=== PATIENT | female | born 1985 | race Caucasian/White ===

== ENCOUNTER → 2021-01-01 08:37 | Outpatient (CLI) | payer OTHER, SELFPAY ==
[2021-01-01 09:43] LABS: COVID19 -Nasal RAPID POSITIVE (Negative)
== END ==
PROVIDERS: PCP Physician Assistant; Visit Provider Physician Assistant
DX: U07.1 COVID-19 (principal)
CPT/HCPCS: 87635

== ENCOUNTER → 2021-07-13 19:07 | Outpatient (ROUT) | payer OTHER, SELFPAY ==
[2021-07-13 20:37] LABS: Urine N gonorrhoeae NOT DETECTED
[2021-07-13 20:43] LABS: Urine Chlamydia NOT DETECTED
== END ==
PROVIDERS: PCP Student in an Organized Health Care Education/Training Program; Visit Provider Obstetrics & Gynecology
DX: Z34.81 Encounter for supervision of other normal pregnancy, first trimester (principal); Z3A.09 9 weeks gestation of pregnancy
CPT/HCPCS: 87491; 87591

== ENCOUNTER → 2021-07-23 09:16 | Outpatient (CLI) | payer OTHER, SELFPAY ==
[2021-07-23 10:14] LABS: Add Manual Diff / Slide Review NO; Basophils Absolute Auto 0 /uL (0-100); Basophils Percent Auto 0.3 % (0-2); Eosinophils Absolute Auto 0 /uL (0-450); Eosinophils Percent Auto 0.2 % (2-4); Hematocrit 37.4 % (36-46); Hemoglobin 12.8 g/dL (12.0-16.0); Lymphocytes Absolute Auto 1400 /uL (1100-4500); Lymphocytes Percent Auto 15.2 % (25-40); Mean Corpuscular HGB Conc 34.2 % (30-36); Mean Corpuscular Hemoglobin 29.8 PG (26-34); Mean Corpuscular Volume 87.1 fL (80-100); Monocytes Absolute Auto 700 /uL (0-900); Monocytes Percent Auto 7.2 % (3-14); Neutrophils Absolute Auto 7300 /uL (1500-7000); Neutrophils Percent Auto 77.1 % (50-75); Platelet Count 367 X10^3/uL (150-400); Red Blood Cell Count 4.29 X10^6/uL (4.0-5.2); Red Cell Distribution Width 14.1 % (11.6-14.8); White Blood Cell Count 9.5 X10^3/uL (4.5-11.0)
[2021-07-23 10:39] LABS: Appearance Urine UA CLEAR; Bilirubin Urine UA NEGATIVE (NEGATIVE); Color Urine UA YELLOW; Glucose Urine UA NEGATIVE (Negative); Ketones Urine UA NEGATIVE (NEGATIVE); Leukocyte Esterase Urine UA NEGATIVE (NEGATIVE); Nitrite Urine UA NEGATIVE (Negative); Occult Blood Urine UA NEGATIVE (Negative); Protein Urine UA NEGATIVE (Negative); Urobilinogen Urine UA 0.2 E.U./dL (0.2)
[2021-07-23 10:43] LABS: pH Urine UA 7.5 (4.5-8.0)
[2021-07-23 10:58] LABS: Hepatitis B Surface Antigen NEGATIVE s/c (NEGATIVE); Rubella Antibody IgG 19.1 IU/mL (>15)
[2021-07-23 11:14] LABS: HIV 1 & 2 Ab/Ag 4th Gen Combo NEGATIVE (NEGATIVE); Hep C Virus Ab w/Reflex Quant NEGATIVE s/c (NEGATIVE)
[2021-07-24 04:36] LABS: RPR Screen Non Reactive (Non Reactive)
[2021-07-24 08:32] LABS: Varicella IgG Antibody 722 index (Immune >165)
== END ==
PROVIDERS: PCP Student in an Organized Health Care Education/Training Program; Referring Provider Obstetrics & Gynecology; Visit Provider Obstetrics & Gynecology
DX: Z36.0 Encounter for antenatal screening for chromosomal anomalies (principal); Z34.80 Encounter for supervision of other normal pregnancy, unspecified trimester
CPT/HCPCS: 36415; 80055; 81003; 86787; 86803; 86850; 86900; 86901; 87086; 87389

== ENCOUNTER → 2021-09-09 14:08 | Outpatient (CLI) | payer OTHER, SELFPAY ==
[2021-09-11 21:10] LABS: AFP Value 72.1 ng/mL (.); Gest Age on Col Date 18.3 weeks (.); Insulin Dep Diabetes No (.); OSBR Risk 1IN 3220 (.); Results Report (.); Test Results *Screen Negative* (.)
== END ==
PROVIDERS: PCP Student in an Organized Health Care Education/Training Program; Referring Provider Obstetrics & Gynecology; Visit Provider Obstetrics & Gynecology
DX: Z34.82 Encounter for supervision of other normal pregnancy, second trimester (principal); Z3A.17 17 weeks gestation of pregnancy
CPT/HCPCS: 36415; 82105

== ENCOUNTER → 2021-09-27 09:10 | Outpatient (CLI) | payer OTHER, SELFPAY ==
--- NOTE | 2021-09-27 09:11 | DI.US.S_ITS ---
PROCEDURE: US OB >= 14 WEEKS FETUS INDICATIONS: Anatomy scan OUTSIDE/PRIOR DATING DATA: Last menstrual period (LMP): 05/08/2021. LMP-based estimated date of delivery (PIETRO): 02/12/2022. First dating scan (date and location): 07/13/2021. Estimated date of delivery (PIETRO) from first dating scan: 02/09/2022. The calculations are made using the ultrasound PIETRO of 02/09/2022. TECHNIQUE: Real-time scanning was performed of the fetus, with image documentation and biometric measurements. Endovaginal scanning: Not performed COMPARISON: [facility], US, US OB <= 14 WEEKS FETUS, 07/13/2021, 14:40. [facility], , US OB <= 14 WEEKS FETUS, 08/12/2021, 13:49. FINDINGS: General: A single living intrauterine gestation is present. Presentation: Breech. Placenta: Placental position is anterior , without previa. Amniotic fluid index: 11.3 cm, normal range is 5-24 cm. heart rate: 144 beats per minute. Maternal cervical canal: 4.6 cm long. Normal lower limit is 2.5 cm. biometrics: Biparietal diameter: 4.8 cm. 20 weeks 3 days. Head circumference: 18.4 cm. 20 weeks 5 days. Abdominal circumference: 16.0 cm. 21 weeks 1 day. Femur length: 3.5 cm. 21 weeks 0 days. Clinically estimated gestational age: 20 weeks 5 days Composite gestational age from present scan: 20 weeks 6 days Estimated weight and percentile: 392 g. 61st percentile. Anatomic survey: Neuro: Ventricles are non-dilated at less than 10 mm. Cisterna magna is normal at 3-11 mm. Cerebellum is normal in size and morphology. Nuchal skin fold: Normal at less than 6 mm between 14-21 weeks gestational age. Face: Nose and lips, facial profile are normal. Spine: No evidence for spina bifida. Heart: 4-chambered heart is present, with normal ventricular outflow tracts. Diaphragm: Diaphragm is intact. Stomach: Left-sided stomach is present. Kidneys: No hydronephrosis. Normal is less than 5 mm in 2nd trimester, less than 7 mm in 3rd trimester. Cord: 3-vessel cord has orthotopic insertion. At the placental insertion there is a 3.2 x 3.7 x 1.3 cm hypoechoic area with a cystic appearance likely a benign placental goldsmith. Bladder: Normal in size. Extremities: All 4 extremities identified. IMPRESSION: 1. All anatomy is visualized and is normal. 2. Hypoechoic area at the placental cord insertion likely a benign placental goldsmith. Recommend routine follow-up. We strive to produce accurate, complete, and clear reports of imaging services. To assist us in improving patient care, this report was composed using standard report templates and voice recognition software. Therefore, it may contain abnormal punctuation, insertions and/or omissions. Occasional wrong-word or sound-alike substitutions may occur. Though we review the report and make efforts to correct it, we do recommend that the report be read carefully in proper context to recognize any text inaccuracies. Dictated by: Clifford Gonzalez M.D. on 09/27/2021 at 10:28 Approved by: Clifford Gonzalez M.D. on 09/27/2021 at 10:43
== END ==
PROVIDERS: PCP Student in an Organized Health Care Education/Training Program; Referring Provider Obstetrics & Gynecology; Visit Provider Obstetrics & Gynecology
DX: Z34.92 Encounter for supervision of normal pregnancy, unspecified, second trimester (principal); Z3A.20 20 weeks gestation of pregnancy
CPT/HCPCS: 76811

== ENCOUNTER → 2021-11-02 14:10 | Outpatient (CLI) | payer OTHER, SELFPAY ==
[2021-11-02 16:00] LABS: Hematocrit 37.1 % (36-46); Hemoglobin 12.6 g/dL (12.0-16.0)
[2021-11-02 16:44] LABS: GTT (PREG) 1 Hour PP 50gm Dose 147 mg/dL (76-139)
== END ==
PROVIDERS: PCP Student in an Organized Health Care Education/Training Program; Referring Provider Obstetrics & Gynecology; Visit Provider Obstetrics & Gynecology
DX: Z34.82 Encounter for supervision of other normal pregnancy, second trimester (principal); Z3A.26 26 weeks gestation of pregnancy
CPT/HCPCS: 36415; 82950; 85014; 85018

== ENCOUNTER → 2021-11-10 07:04 | Outpatient (CLI) | payer OTHER, SELFPAY ==
[2021-11-10 08:08] LABS: Glucose Fasting Gestational 80 mg/dL (76-95)
[2021-11-10 09:34] LABS: Glucose 1 Hour Gest 190 mg/dL (76-180)
[2021-11-10 09:50] LABS: Glucose 2 Hour Gest 131 mg/dL (76-155)
[2021-11-10 10:30] LABS: Glucose Tol Interp,Gestational INTERPRETATION
[2021-11-10 11:47] LABS: Glucose 3 Hour Gest 99 mg/dL (76-140)
== END ==
PROVIDERS: PCP Student in an Organized Health Care Education/Training Program; Referring Provider Obstetrics & Gynecology; Visit Provider Obstetrics & Gynecology
DX: O99.810 Abnormal glucose complicating pregnancy (principal)
CPT/HCPCS: 36415; 82951; 82952

== ENCOUNTER → 2022-01-21 08:44 | Outpatient (CLI) | payer OTHER, SELFPAY ==
[2022-01-22 13:11] LABS: Strep Grp B PCR NEG for Grp B Strep
== END ==
PROVIDERS: PCP Student in an Organized Health Care Education/Training Program; Visit Provider Obstetrics & Gynecology
DX: Z34.83 Encounter for supervision of other normal pregnancy, third trimester (principal); Z3A.36 36 weeks gestation of pregnancy
CPT/HCPCS: 87653

== ENCOUNTER 2022-01-25 12:47 | Outpatient (CLI) | payer OTHER, SELFPAY | END 2022-01-25 13:44 | disposition home or self-care (01) | LOC: LABOR 13:31 → OB 01-28 08:03 | PROVIDERS: PCP Student in an Organized Health Care Education/Training Program; Referring Provider Obstetrics & Gynecology; Visit Provider Obstetrics & Gynecology | DX: O47.1 False labor at or after 37 completed weeks of gestation (principal); Z3A.37 37 weeks gestation of pregnancy | CPT/HCPCS: 59025; 84112; G0378; G0379 ==

== ENCOUNTER 2022-02-10 16:00 | Observation (INO) | payer OTHER, SELFPAY ==
[2022-02-10] MEDS: MORPHINE 10 MG/ML INJ IM (17:53)
[2022-02-10] MEDS: hydrOXYzine pamoate 25 MG CAPSULE 50 MG PO (17:57)
== END 2022-02-10 18:14 | disposition home or self-care (01) ==
LOC: LABOR 16:03
PROVIDERS: Admitting Provider Obstetrics & Gynecology; PCP Student in an Organized Health Care Education/Training Program; Referring Provider Obstetrics & Gynecology; Visit Provider Obstetrics & Gynecology
DX: O47.1 False labor at or after 37 completed weeks of gestation (principal); Z3A.39 39 weeks gestation of pregnancy
CPT/HCPCS: 59025; 59050; 96372; G0378; G0379; J2270

== ENCOUNTER 2022-02-11 01:08 | Inpatient (IN) | payer OTHER, SELFPAY ==
[2022-02-11 01:51] LABS: Add Manual Diff / Slide Review NO; Basophils Absolute Auto 0 /uL (0-100); Basophils Percent Auto 0.2 % (0-2); Eosinophils Absolute Auto 100 /uL (0-450); Eosinophils Percent Auto 0.3 % (2-4); Hematocrit 42.2 % (36-46); Hemoglobin 13.8 g/dL (12.0-16.0); Lymphocytes Absolute Auto 1800 /uL (1100-4500); Lymphocytes Percent Auto 8.6 % (25-40); Mean Corpuscular HGB Conc 32.7 % (30-36); Mean Corpuscular Hemoglobin 29.1 PG (26-34); Mean Corpuscular Volume 89.2 fL (80-100); Monocytes Absolute Auto 1300 /uL (0-900); Monocytes Percent Auto 6.5 % (3-14); Neutrophils Absolute Auto 17400 /uL (1500-7000); Neutrophils Percent Auto 84.4 % (50-75); Platelet Count 373 X10^3/uL (150-400); Red Blood Cell Count 4.73 X10^6/uL (4.0-5.2); Red Cell Distribution Width 13.6 % (11.6-14.8); White Blood Cell Count 20.6 X10^3/uL (4.5-11.0)
[2022-02-11 02:03] LABS: COVID19 -Nasal RAPID Negative (Negative)
[2022-02-11] MEDS: fentaNYL 100 MCG/2 ML INJ (02:12)
[2022-02-11 02:20] VITALS: BP 127/71
--- NOTE | 2022-02-11 13:02 | P.HPOB_ITS ---
OB HPI Date/Time Date of admission: 02/11/22 Date Patient Seen: 02/11/22 Time Patient Seen: 07:45 History of Present Condition Chief complaint: LABOR PIETRO Calculator Estimated Delivery Date Method Current WG Current Estimate 02/12/22 LMP (Certain) 39w 6d Estimated Gestational Age (weeks): 39+6 : 3 Para: 0 care: good care, initiated at week # (9), number of visits (12) and pounds weight gain (35) Dating criteria OB: LMP confirmed by 1st trimester US Ultrasounds: normal 1st trimester US Obstetrical complications: none Medical complications OB: none Narrative: Elevated 1 hr GTT, nl 3 hr GTT Preadmission Labs Last OB Lab Results: Blood Type A Positive 02/11/22 01:00 Antibody Screen Negative 02/11/22 01:00 Hematocrit 42.2 % (36-46) 02/11/22 01:00 Hemoglobin 13.8 g/dL (12.0-16.0) 02/11/22 01:00 Hepatitis B Surface Antigen Negative s/c (NEGATIVE) 07/23/21 09 :52 Hepatitis C Antibody Negative s/c (NEGATIVE) 07/23/21 09:52 Rubella Antibody 19.1 IU/mL (>15) 07/23/21 09:52 Varicella-Zoster IgG Antibody 722 index (Immune >165) 07/23/21 09:52 Glucose 1 Hour 147 mg/dL (76-139) H 11/02/21 15:19 Group B Streptococcus (PCR) Neg for grp b strep 01/21/22 08:44 Glucose Tolerance Testing: Fasting (80), 1 hr (190), 2 hr (131) and 3 hr (99) -: Chlamydia screen: negative, Gonorrhea screen: negative and Urine: negative Genetic Screens: Cell-free DNA: Normal (normal male) and Alpha-fetoprotein: Normal External Labs -: Urine: negative Prior (ies) Past Pregnancies Del. Date GA/Weeks Labor Lgth Wt Sex Route Outcome Anesthesia Place Delv Breastfeed Preg Comp Name 12/09/15 6 spontaneous 04/03/21 5 spontaneous Evaluation Evaluation Baseline heart rate: 135 Variability: Moderate (11-25) monitor accelerations: Present Monitor Decelerations: Absent Contraction Frequency (minutes): 3 Uterine Contraction Intensity: Strong/Firm Status: Category l Dilation (cm): 8 Effacement (%): 100 station: -1 Position of cervix: anterior [facility] Medical History (Updated 07/13/21 @ 14:53 by Uyen Godfrey MD) Allergies (~2015) Anxiety (~2021) Lymphoproliferative disease (~2015) Surgical History (Updated 07/05/21 @ 10:25 by Aurelia Campo RN) No history of previous surgery Family History (Updated 07/05/21 @ 21:42 by Zoila Banda) Grandmother Cancer Grandmother Breast cancer Social History (System 07/02/21 @ 09:39 by Zaira Carroll) marital status: number of children: 0 household members: spouse lives independently: Yes housing: house pets and animals: Yes (Dog and cat - aware of toxoplasmosis) occupational status: employed current occupational exposures/hazards: No special betsy needs: No seatbelt use: always water heater temp set < 120 deg: Yes working smoke detector in home: Yes fire extinguisher in home: Yes carbon monox detector in home: Yes firearms in home: No do you feel safe at home: Yes Smoking Status: Never smoker second hand exposure: No alcohol intake: former substance use type: does not use during the past year weight has: remained stable well-balanced diet: daily or most days daily servings fruits/ve-4 caffeine: Yes (200mg limit) Type(s) of exercise: walking and regular exercise frequency: daily Meds Home Medications and Allergies Home Medications Medication Instructions Recorded Confirmed Type loratadine 10 mg tablet (Allergy 10 mg PO DAILY 01/01/21 02/10/22 History Relief (loratadine)) prenat.vits,jane,fee-gano-slxvq 1 tab PO DAILY 07/05/21 02/10/22 History citalopram 10 mg tablet (Celexa) 10 mg PO DAILY #30 tabs 07/13/21 02/10/22 Rx hydroxyzine HCl 25 mg tablet 25 mg PO TID PRN anxiety #30 tabs 10/25/21 02/10/22 Rx Allergies Allergy/AdvReac Type Severity Reaction Status Date / Time No Known Drug Allergies Allergy Verified 02/10/22 14:58 OB Exam Narrative Exam Narrative: Generally: Patient in moderate distress due to contractions Fundal height: 40 cm Estimated weight: 7-1/2 lb Extremities: Trace edema Objective Labs Result Diagrams: 02/11/22 01:00 Labs: Laboratory Results - last 24 hr 02/11/22 02/11/22 02/11/22 01:00 01:00 01:25 WBC 20.6 H RBC 4.73 Hgb 13.8 Hct 42.2 MCV 89.2 MCH 29.1 MCHC 32.7 RDW 13.6 Plt Count 373 Neut % (Auto) 84.4 H Lymph % (Auto) 8.6 L [place] % (Auto) 6.5 Eos % (Auto) 0.3 L Baso % (Auto) 0.2 Neut # (Auto) 67832 H Lymph # (Auto) 1800 [place] # (Auto) 1300 H Eos # (Auto) 100 Baso # (Auto) 0 SARS-CoV-2 (PCR) Negative Blood Type A Positive Antibody Screen Negative Assessment and Plan Assessment and Plan Assessment and Plan narrative: Assessment: 36-year-old 3 para 0 at 39-,6/7 weeks gestation who presented in active labor Presumed rupture of membranes at 3:00 a.m. Group B strep negative 1 hour glucose elevated, 3 hour glucose normal Plan: Expected management to spontaneous vaginal delivery Epidural as necessary Time Spent with Patient Total time spent with greater than 50% in coordination of care (as documented) at patient's floor/unit and/or counseling patient:: 15-24 minutes
--- NOTE | 2022-02-11 13:08 | PM.OBPNLAB ---
Date/Time Date Patient Seen: 02/11/22 Time Patient Seen: 13:08 Pain Control Pain control: epidural Pelvic Exam Dilation (cm): 10 Effacement (%): 100 station: -1 Amniotic membrane status: Ruptured Contractions Contractions on admission: regular Monitor mode: External Contraction frequency (min): 5 Contraction duration (min): 1 Contraction intensity: Strong/Firm Status status: Category l Heart Rate Baseline: 125 Monitor Accelerations: Present Monitor Decelerations: Early and Variable Monitor Variability: Moderate Assessment and Plan Assessment: active labor Comments: Begin pushing Expectant management to
[2022-02-11] MEDS: OXYTOCIN PREMIX 30 UNIT/500 ML PLAST..BAG IV (13:20)
--- NOTE | 2022-02-11 16:17 | PM.OBPNLAB ---
Date/Time Date Patient Seen: 02/11/22 Time Patient Seen: 15:55 Pain Control Pain control: tolerating well and epidural Pelvic Exam Dilation (cm): 10 Effacement (%): 100 station: +2 Amniotic membrane status: Ruptured Contractions Monitor mode: External Contraction frequency (min): 5 Contraction pattern: Regular Contraction phase: Resting Contraction intensity: Moderate Status status: Category l Heart Rate Baseline: 135 Monitor Accelerations: Present Monitor Decelerations: Late (Following pushes; Pitocin off and decels have stopped; Moderate variability) and Periodic Monitor Variability: Moderate Assessment and Plan Assessment: active labor Plan: continuous present management Comments: Will resume pushing off pitocin with resumption of pitocin if decels resolve. Expedited delivery w/ vacuum extraction if warranted.
--- NOTE | 2022-02-11 17:42 | P.PCNOB_ITS ---
Labor & Delivery Delivery date: 02/11/22 Intrapartal Events: Hypotonic Dysfunction Cervical ripening method: none Delivery monitor: external FHT and external uterine Route of delivery: vacuum extraction Indication for instrumentation: nonreassuring FHR tracing Episiotomy description: None L&D Laceration Description: Periurethral - 1st Degree (Bilateral), Perineal - 1st Degree and Labial (Right) Delivery repair: chromic Estimated blood loss (mL): 150 Anesthesia Type: Epidural Complications: None Narrative: Following a 2nd stage lasting greater than 2.0 hours, the patient was noted to have recurrent late decelerations associated with her contractions at which point Pitocin was stopped and pushing discontinued. Her decelerations resolved but with resumption pushing, she again began to have deep variables with a late component and after discussion with the patient and her , the decision was made to proceed with vacuum extraction from +2-3 3 station. The was in left occiput anterior position approximately 5? from direct OA at +2-3 station. Kiwi Omni cup was applied in the usual manner and the vertex easily brought down to perineum with 4 pulls and no pop offs. Pressure was maintained below 550 mm mercury at all times and suction was released between pushes. Three additional pulls with a standard vacuum extractor were necessary to gently bring the vertex over the intact perineum. No shoulder dystocia was noted and there was no cord entanglement. Following delivery, skin to skin contact was initiated immediately and delayed cord clamping performed. Once the umbilical cord was doubly clamped and cut, a cord blood sample was obtained for routine testing. Placenta was then delivered spontaneously gentle cord traction, and was found to be intact with a three-vessel cord and central insertion. IV Pitocin was initiated and post delivery bleeding was minimal. Inspection of the perineum showed that a labial laceration was present on the right with first-degree periurethral lacerations noted bilaterally. In addition there was a superficial perineal tear as well. All lacerations were then closed primarily with either 3-0 chromic or 4-0 chromic suture. Hemostasis was e xcellent at the completion of the repairs and the patient tolerated the delivery process well. At the conclusion of the delivery process both mother and were doing well and no complications were experienced. [employer] Baby 1: Infant gender: Male Presentation: vertex Position: Left Occiput Anterior Placenta delivery description: Spontaneous Cord Vessel Description: 3 Vessels score (1 min): 9 score (5 min): 9 weight: 7 lb 6.344 oz Plan for aftercare: Routine care
[2022-02-11] MEDS: IBUPROFEN 600 MG TABLET PO (18:34)
[2022-02-11] MEDS: ACETAMINOPHEN 325 MG TABLET 650 MG PO (18:34)
[2022-02-11] MEDS: DERMOPLAST SPRAY 20% 60 ML 1 SPRAY TOP (18:35)
[2022-02-11] MEDS: LANOLIN OINT 7 GM 1 APPLIC TOP (18:36)
[2022-02-11] MEDS: miSOPROStoL 200 MCG TABLET 800 MCG PR (19:49)
[2022-02-11] MEDS: METHYLERGONOVINE 0.2 MG/ML VIAL IM (19:50)
[2022-02-11] MEDS: OXYTOCIN PREMIX 30 UNIT/500 ML PLAST..BAG 200 UNIT IV (19:50)
[2022-02-11] MEDS: CARBOPROST 250 MCG/ML AMPUL IM (22:19)
[2022-02-11] MEDS: TRANEXAMIC ACID 1,000 MG in SODIUM CHLORIDE 0.9% 100 ML 200 MG IV (22:33)
[2022-02-12] MEDS: hydrOXYzine pamoate 25 MG CAPSULE PO (00:06)
[2022-02-12] MEDS: ACETAMINOPHEN 325 MG TABLET 650 MG PO ×4 (00:06→18:42)
[2022-02-12] MEDS: IBUPROFEN 600 MG TABLET PO ×4 (00:06→18:42)
[2022-02-12 06:32] LABS: Add Manual Diff / Slide Review NO; Basophils Absolute Auto 0 /uL (0-100); Basophils Percent Auto 0.1 % (0-2); Eosinophils Absolute Auto 0 /uL (0-450); Eosinophils Percent Auto 0.2 % (2-4); Hematocrit 30.9 % (36-46); Hemoglobin 10.6 g/dL (12.0-16.0); Lymphocytes Absolute Auto 1700 /uL (1100-4500); Lymphocytes Percent Auto 8.5 % (25-40); Mean Corpuscular HGB Conc 34.2 % (30-36); Mean Corpuscular Volume 87.7 fL (80-100); Monocytes Absolute Auto 1800 /uL (0-900); Monocytes Percent Auto 9.1 % (3-14); Neutrophils Absolute Auto 15900 /uL (1500-7000); Neutrophils Percent Auto 82.1 % (50-75); Platelet Count 302 X10^3/uL (150-400); Red Blood Cell Count 3.53 X10^6/uL (4.0-5.2); Red Cell Distribution Width 13.4 % (11.6-14.8); White Blood Cell Count 19.4 X10^3/uL (4.5-11.0)
[2022-02-12] MEDS: DOCUSATE 100 MG CAPSULE PO (09:16)
[2022-02-12] MEDS: CITALOPRAM 10 MG TABLET PO (09:16)
--- NOTE | 2022-02-12 15:55 | P.DS_ITS ---
Discharge Providers Provider Date of admission: 02/11/22 01:08 Discharge Date: 02/12/22 Primary care physician: Isatu Scales PA-C Consults: 02/12/22 17:39 Consult to Revenue Enforcement Collection Agent Routine Comment: Discharge provider: Uyen Godfrey MD Summary Hospital Course Date Patient Seen: 02/12/22 Time Patient Seen: 15:56 Diagnoses: 39-,6/7 weeks gestation Pitocin augmentation of labor Prolonged second stage of labor Vacuum assisted vaginal delivery Obstetrical laceration and repair hemorrhage Hospital Course: Patient is a 36-year-old 3 para 1 who presented on February 11, 2022 in active labor. She had a spontaneous rupture of membranes with clear amniotic fluid. She received an epidural for pain management. She had a prolonged second stage of labor, with some late/variable decelerations, and had a vacuum assisted vaginal delivery. She had an uncomplicated repair. She had a hemorrhage which required IV Pitocin, Methergine, Cytotec, Hemabate, and TXA. A Chaudhry catheter was placed for a distended bladder. The Chaudhry catheter was removed on day #1. She was able to void on her own. Her bleeding was minimal. She is discharged home on day #1. Peripartum Data Delivery Method: Assisted Delivery (Vaginal) Laceration Description: Periurethral - 1st Degree and Perineal - 1st Degree Episiotomy description: None Procedures: Epidural analgesia Pitocin augmentation of labor Vacuum assisted vaginal delivery Obstetrical laceration repair complications: uterine atony [place] 1: Gender: Male Disposition of : home Status at Discharge Cognitive/behavioral status at discharge: oriented Functional status at discharge: independent ambulation Overall status at discharge: patient is progressing back to baseline Time Spent with Patient Time attestation: Total time spent providing and/or coordinating discharge services: Time spent: Less than 30 minutes Objective Labs Result Diagrams: 02/12/22 06:19 Labs: Laboratory Results - last 24 hr 02/12/22 06:19 WBC 19.4 H RBC 3.53 L Hgb 10.6 L Hct 30.9 L MCV 87.7 MCH 30.0 MCHC 34.2 RDW 13.4 Plt Count 302 Neut % (Auto) 82.1 H Lymph % (Auto) 8.5 L [place] % (Auto) 9.1 Eos % (Auto) 0.2 L Baso % (Auto) 0.1 Neut # (Auto) 37214 H Lymph # (Auto) 1700 [place] # (Auto) 1800 H Eos # (Auto) 0 Baso # (Auto) 0 Exam Narrative Exam Narrative: Generally: Patient is sitting up in bed, no acute distress Fundus: Firm at U -1 Extremities: Trace edema, negative Hom[place] Discharge Plan Discharge Plan Patient Disposition: Home Provider Discharge Comment: Call with fever, chills, or bleeding vaginally more than a pad in an hour Ibuprofen 600 mg every 6 hours as needed Tylenol 650 mg every 6 hours as needed Push fluids Discharge orders & Medications Prescriptions: Continued loratadine [Allergy Relief (loratadine)] 10 mg tablet 10 mg PO DAILY hydroxyzine HCl 25 mg tablet 25 mg PO TID PRN (Reason: anxiety) Qty: 30 3RF Rx Instructions: Take 1/2-1 tablet 3 times a day as needed for anxiety citalopram [Celexa] 10 mg tablet 10 mg PO DAILY Qty: 30 11RF prenat.vits,jane,ide-ebvk-uagsk Tablet 1 tab PO DAILY Follow up/Referrals: Uyen Godfrey MD [Physician] - 6 Weeks (My office will call patient on Monday to schedule 6 week exam) Diet/Activity/Treatments Diet: Regular Activity: Nothing in the vagina for 6 weeks Skin/Wound/Dressing Care Report to your healthcare provider any signs of infection, such as:: chills, fever, increased pain and unusual drainage Visit Report/Discharge Packet Instructions: DI for Labor and Delivery, Vaginal Discharge Data Primary Care Provider: Isatu Scales Attending Provider: Daniela Moses
== END 2022-02-12 19:10 | disposition home or self-care (01) | DRG 806 ==
PROVIDERS: Obstetrics & Gynecology; Admitting Provider Nurse Practitioner Obstetrics & Gynecology; PCP Student in an Organized Health Care Education/Training Program; Referring Provider Nurse Practitioner Obstetrics & Gynecology; Visit Provider Nurse Practitioner Obstetrics & Gynecology
DX: O76 Abnormality in fetal heart rate and rhythm complicating labor and delivery (principal); O72.2 Delayed and secondary postpartum hemorrhage; Z37.0 Single live birth; O63.1 Prolonged second stage (of labor); Z3A.39 39 weeks gestation of pregnancy; O70.0 First degree perineal laceration during delivery; O90.89 Other complications of the puerperium, not elsewhere classified; N32.89 Other specified disorders of bladder; Z20.822 Contact with and (suspected) exposure to COVID-19
CPT/HCPCS: 36415; 59050; 59400; 59409; 85025; 86850; 86900; 86901; 87635; C9803; G0378; G0379; J2210; J2590; J3010; S0191

== ENCOUNTER → 2023-01-24 10:01 | Outpatient (CLI) | payer OTHER, SELFPAY | PROVIDERS: PCP Student in an Organized Health Care Education/Training Program; Referring Provider Family Medicine; Visit Provider Family Medicine | DX: Z23 Encounter for immunization (principal) | CPT/HCPCS: 90471; 90686 ==

== ENCOUNTER → 2024-01-12 20:01 | Outpatient (CLI) | payer OTHER, SELFPAY | PROVIDERS: PCP Student in an Organized Health Care Education/Training Program; Referring Provider Internal Medicine; Visit Provider Internal Medicine | DX: Z23 Encounter for immunization (principal) | CPT/HCPCS: 90471; 90656 ==

== ENCOUNTER → 2024-06-07 07:00 | Outpatient (CLI) | payer OTHER, SELFPAY | PROVIDERS: PCP Student in an Organized Health Care Education/Training Program; Referring Provider Obstetrics & Gynecology; Visit Provider Obstetrics & Gynecology | DX: N96 Recurrent pregnancy loss (principal) | CPT/HCPCS: 36415; 84702 ==

== ENCOUNTER → 2024-06-10 06:58 | Outpatient (CLI) | payer OTHER, SELFPAY ==
[2024-06-10 08:15] LABS: HCG Quantitative /Beta subunit 10766 mIU/mL
== END ==
PROVIDERS: PCP Student in an Organized Health Care Education/Training Program; Referring Provider Obstetrics & Gynecology; Visit Provider Obstetrics & Gynecology
DX: N96 Recurrent pregnancy loss (principal)
CPT/HCPCS: 36415; 84702

== ENCOUNTER → 2024-07-10 09:35 | Outpatient (CLI) | payer OTHER, SELFPAY ==
[2024-07-10 12:31] LABS: Urine Chlamydia NOT DETECTED; Urine N gonorrhoeae NOT DETECTED
== END ==
PROVIDERS: PCP Student in an Organized Health Care Education/Training Program; Visit Provider Specialist
DX: Z11.3 Encounter for screening for infections with a predominantly sexual mode of transmission (principal); Z3A.09 9 weeks gestation of pregnancy
CPT/HCPCS: 87491; 87591

== ENCOUNTER → 2024-07-16 14:24 | Outpatient (CLI) | payer OTHER, SELFPAY ==
[2024-07-16 15:11] LABS: Add Manual Diff / Slide Review NO; Basophils Absolute Auto 0 /uL (0-100); Basophils Percent Auto 0.2 % (0-2); Eosinophils Absolute Auto 0 /uL (0-450); Eosinophils Percent Auto 0.3 % (2-4); Hematocrit 41.1 % (36-46); Hemoglobin 13.8 g/dL (12.0-16.0); Lymphocytes Absolute Auto 2400 /uL (1100-4500); Lymphocytes Percent Auto 19.1 % (25-40); Mean Corpuscular HGB Conc 33.6 % (30-36); Mean Corpuscular Hemoglobin 29.4 PG (26-34); Mean Corpuscular Volume 87.5 fL (80-100); Monocytes Absolute Auto 600 /uL (0-900); Monocytes Percent Auto 5.1 % (3-14); Neutrophils Absolute Auto 9500 /uL (1500-7000); Neutrophils Percent Auto 75.3 % (50-75); Platelet Count 404 X10^3/uL (150-400); Red Cell Distribution Width 13.8 % (11.6-14.8); White Blood Cell Count 12.6 X10^3/uL (4.5-11.0)
[2024-07-16 15:35] LABS: Natera Collection Specimen Collected
[2024-07-16 16:40] LABS: Hepatitis B Surface Antigen NEGATIVE s/c (NEGATIVE); Rubella Antibody IgG 28.7 IU/mL (>15)
[2024-07-16 16:56] LABS: HIV 1 & 2 Ab/Ag 4th Gen Combo NEGATIVE (NEGATIVE); Hep C Virus Ab w/Reflex Quant NEGATIVE s/c (NEGATIVE)
[2024-07-18 05:41] LABS: RPR Screen Non Reactive (Non Reactive)
[2024-07-18 09:39] LABS: Varicella IgG Antibody Reactive (Non Reactive)
== END ==
PROVIDERS: Obstetrics & Gynecology; PCP Student in an Organized Health Care Education/Training Program; Referring Provider Specialist; Visit Provider Specialist
DX: O09.521 Supervision of elderly multigravida, first trimester (principal); Z36.0 Encounter for antenatal screening for chromosomal anomalies
CPT/HCPCS: 36415; 80055; 86787; 86803; 86850; 86900; 86901; 87086; 87389

== ENCOUNTER → 2024-09-04 09:54 | Outpatient (CLI) | payer OTHER, SELFPAY ==
[2024-09-06 20:36] LABS: AFP Value 54.5 ng/mL (.); Gest Age on Col Date 17.6 weeks (.); Insulin Dep Diabetes No (.); OSBR Risk 1IN 4034 (.); Results Report (.); Test Results *Screen Negative* (.)
== END ==
PROVIDERS: PCP Student in an Organized Health Care Education/Training Program; Referring Provider Obstetrics & Gynecology; Visit Provider Obstetrics & Gynecology
DX: Z34.92 Encounter for supervision of normal pregnancy, unspecified, second trimester (principal); Z3A.17 17 weeks gestation of pregnancy
CPT/HCPCS: 36415; 82105

== ENCOUNTER → 2024-09-25 08:47 | Outpatient (CLI) | payer OTHER, SELFPAY ==
--- NOTE | 2024-09-25 08:49 | DI.US.S_ITS ---
PROCEDURE: US OB >= 14 WEEKS FETUS INDICATIONS: ANATOMY OUTSIDE/PRIOR DATING DATA: Last menstrual period (LMP): 05/04/2024 LMP-based estimated date of delivery (PIETRO): 02/08/2025 First dating scan (date and location): 06/26/2024 Estimated date of delivery (PIETRO) from first dating scan: 02/12/2025 The calculations are made using the clinical PIETRO of 02/08/2025 TECHNIQUE: Real-time scanning was performed of the fetus, with image documentation and biometric measurements. Endovaginal scanning: Not performed COMPARISON: [facility], OB >= 14 WEEKS FETUS, 09/27/2021, 10:39. FINDINGS: General: A single living intrauterine gestation is present. Presentation: Vertex Placenta: Placental position is posterior left, without previa. Amniotic fluid index: 17.2 cm, normal range is 5-24 cm. Single deepest vertical pocket is 5.8 cm. heart rate: 136 beats per minute. Maternal cervical canal: 5.6 cm long. Normal lower limit is 2.5 cm. biometrics: Biparietal diameter: 4.7 cm, 20 weeks 1 day Head circumference: 17.7 cm, 20 weeks 1 day Abdominal circumference: 15.6 cm, 20 weeks 6 days Femur length: 3.3 cm, 20 weeks 1 day Clinically estimated gestational age: 20 weeks 4 days Composite gestational age from present scan: 20 weeks 2 days Estimated weight and percentile: 354 g, 40th percentile Anatomic survey: Neuro: Ventricles are non-dilated at less than 10 mm. Cisterna magna is normal at 3-11 mm. Cerebellum is normal in size and morphology. Nuchal skin fold: Normal at less than 6 mm between 14-21 weeks gestational age. Face: Nose and lips, facial profile are normal. Spine: No evidence for spina bifida. Heart: 4-chambered heart is present, with normal ventricular outflow tracts. Diaphragm: Diaphragm is intact. Stomach: Left-sided stomach is present. Kidneys: No hydronephrosis. Normal is less than 5 mm in 2nd trimester, less than 7 mm in 3rd trimester. Cord: 3-vessel cord has orthotopic insertion. Bladder: Normal in size. Extremities: All 4 extremities identified. IMPRESSION: 1. Single live intrauterine with appropriate interval growth. 2. anatomic survey is within normal limits. Approved by: Jovani Luo M.D. on 09/25/2024 at 14:24
== END ==
LOC: US 08:48
PROVIDERS: PCP Obstetrics & Gynecology; Referring Provider Obstetrics & Gynecology; Visit Provider Obstetrics & Gynecology
DX: Z36.89 Encounter for other specified antenatal screening (principal); Z3A.20 20 weeks gestation of pregnancy
CPT/HCPCS: 76811

== ENCOUNTER → 2024-10-21 10:14 | Outpatient (CLI) | payer OTHER, SELFPAY ==
[2024-10-21 12:46] LABS: Hematocrit 37.9 % (36-46); Hemoglobin 13.0 g/dL (12.0-16.0)
[2024-10-21 12:54] LABS: GTT (PREG) 1 Hour PP 50gm Dose 106 mg/dL (76-139)
== END ==
PROVIDERS: PCP Student in an Organized Health Care Education/Training Program; Referring Provider Obstetrics & Gynecology; Visit Provider Obstetrics & Gynecology
DX: Z34.82 Encounter for supervision of other normal pregnancy, second trimester (principal); Z3A.26 26 weeks gestation of pregnancy
CPT/HCPCS: 36415; 82950; 85014; 85018

== ENCOUNTER → 2025-01-15 12:31 | Outpatient (CLI) | payer OTHER, SELFPAY ==
[2025-01-16 10:41] LABS: Strep Grp B PCR NEG for Grp B Strep
== END ==
PROVIDERS: PCP Student in an Organized Health Care Education/Training Program; Visit Provider Obstetrics & Gynecology
DX: Z36.85 Encounter for antenatal screening for Streptococcus B (principal)
CPT/HCPCS: 87653

== ENCOUNTER 2025-01-17 06:04 | Observation (INO) | payer OTHER, SELFPAY ==
[2025-01-17 06:40] LABS: Hematocrit 39.0 % (36-46); Hemoglobin 13.3 g/dL (12.0-16.0); Mean Corpuscular HGB Conc 34.1 % (30-36); Mean Corpuscular Hemoglobin 29.4 PG (26-34); Mean Corpuscular Volume 86.2 fL (80-100); Platelet Count 449 X10^3/uL (150-400)
--- NOTE | 2025-01-17 07:27 | PM.AN.REGBLK ---
Regional Block Pre-procedure Procedure: Continuous Lumbar Epidural for L&D (CSE for cephalic version) Attending OB provider: Zahraa Rasheed PMH/ROS narrative: at 36+ breech, in for external cephalic version. No medical or obstetric complications. Pt had epidural for previous delivery. Exam narrative: WNWD CTAB, RRR MP1, normal TM ASA Class: II Labs: Hct 39.0 % (36-46) 01/17/25 06:20 Plt Count 449 X10^3/uL (150-400) H 01/17/25 06:20 Allergies: Allergies Allergy/AdvReac Type Severity Reaction Status Date / Time No Known Drug Allergies Allergy Verified 01/17/25 06:44 Procedure Insertion date: 01/17/25 Insertion time: 07:56 Prep/Local: betadine x3 and 1% lidocaine Interspace: L23 Patient position: sitting Needle: 18 gauge Hustead (CSE: 27g Pencan through Hustead, clear CSF. 1mL 0.5% bupiv) Loss of resistance with: saline ELIZABETH at (cm): 5 Catheter placed at SKIN (cm): 10 Catheter in SPACE (cm): 5 Insertion: No CSF, No Blood, No Paresthesia with insertion, No Paresthesia with injection and No Test dose reaction Initial Medications TEST DOSE time: 07:57 TEST DOSE: 1.5% lidocaine with epinephrine 1:200k (mL): 3 Post-procedure Anesthesia date START: 01/17/25 Anesthesia time START: 07:40 Anesthesia date END: 01/17/25 Anesthesia time END: 09:00 Post-procedure Anesthesia Assessment: Yes CV function: HR/BP stable, Yes Resp function: RR/sat/airway adequate, Yes Post-op hydration adequate, Yes Pain control adequate, Yes Nausea & vomiting absent, Yes Temperature > 36 C, Yes Mental status appropriate and No Anesthesia complications
--- NOTE | 2025-01-17 07:44 | PM.OBHP.IH.1 ---
OB HPI Date/Time Date of admission: 01/17/25 Date Patient Seen: 01/17/25 Time Patient Seen: 07:45 History of Present Condition Chief complaint: EXTERNAL VERSION PIETRO Calculator Estimated Delivery Date Method Current WG Current Estimate 02/08/25 LMP (Uncertain) 36w 6d Other Estimates 02/11/25 Ultrasound #1 36w 3d Estimated Gestational Age (weeks): 36.6w : 7 Para: 1 Narrative: Josué fernandes @ 36w6d presents to L&D for scheduled external cephalic version. no comlains. reports mild contracations. aleksandra LOF/VB and report good movement. patient has requested an epidural for pain management during procedure. care: good care Dating criteria OB: LMP confirmed by 1st trimester US Ultrasounds: normal mid trimester US Obstetrical complications: none Medical complications OB: none Indications Other reason(s) for admission: Persistent mary breech presentation Preadmission Labs Last OB Lab Results: Blood Type A Positive Today, 06:20 Antibody Screen Negative Today, 06:20 Hct, (36-46) 39.0 % Today, 06:20 Hgb, (12.0-16.0) 13.3 g/dL Today, 06:20 Hep Bs Antigen, (NEGATIVE) Negative s/c 07/16/24, 14:35 Hepatitis C Antibody, (NEGATIVE) Negative s/c 07/16/24, 14:35 Rubella Antibody, (>15) 28.7 IU/mL 07/16/24, 14:35 VZV IgG Antibody, (Non Reactive) Reactive 07/16/24, 14:35 Glucose 1 Hr 50 gm, (76-139) 106 mg/dL 10/21/24, 10:39 Group B Strep (PCR) Neg for grp b strep 01/15/25, 14:00 -: Chlamydia screen: negative and Gonorrhea screen: negative Prior (ies) Past Pregnancies Del. Date GA/Weeks Labor Lgth Wt Sex Route Outcome Anesthesia Place Delv Breastfeed Preg Comp Name 12/09/15 6 spontaneous 04/03/21 5 spontaneous 02/11/22 39.6 16 7 lb 6.3 oz Male vacuum live - full term [facility] 10/26/23 5 spontaneous Delivery Date: 10/26/23 Last Updated by: Sofia Lentz RN Passed spontaneously Hx # Term Pregnancies: 1 Number of Living Children: 1 [facility] Medical History (Updated 11/27/24 @ 11:00 by Uyen Godfrey MD) Arm fracture Lymphoproliferative disease (~2015) Allergies (~2015) Surgical History (Updated 10/25/23 @ 09:38 by Sofia Lentz, RN) [place] teeth extracted S/P skin biopsy Family History (Updated 10/25/23 @ 09:40 by Sofia Lentz RN) Grandmother Lymphoma Grandmother Breast cancer Father Hypertension Social History (System 07/02/21 @ 09:39 by Zaira Carroll) marital status: number of children: 1 household members: spouse and children lives independently: Yes caregiver/support person: Yes housing: house pets and animals: Yes (Dog and cat - aware of toxoplasmosis) education level: master's degree (accounting) occupational status: employed current occupational exposures/hazards: No special betsy needs: No travel history: recent (domestic only) seatbelt use: always water heater temp set < 120 deg: Yes working smoke detector in home: Yes fire extinguisher in home: Yes carbon monox detector in home: Yes firearms in home: No do you feel safe at home: Yes second hand exposure: No alcohol intake: former (very occasionally when not ) substance use type: does not use during the past year weight has: remained stable well-balanced diet: daily or most days daily servings fruits/ve or more times/day caffeine: Yes (aware of 200mg limit) Type(s) of exercise: walking, bicycling, resistance training and running frequency: daily Meds Home Medications and Allergies Home Medications ?Medication ?Instructions ?Recorded ?Confirmed ?Type prenat.vits,jane,uge-dewo-iktyc 1 tab PO DAILY 07/05/21 01/17/25 History cetirizine 10 mg capsule (Allergy 10 mg PO DAILY PRN allergy symptoms 10/25/23 01/17/25 History Relief (cetirizine)) citalopram 20 mg tablet 10 mg PO DAILY 10/02/24 01/17/25 History betamethasone valerate 0.1 % 1 applic topical BID PRN rash #45 01/01/25 01/17/25 Rx topical cream grams Allergies Allergy/AdvReac Type Severity Reaction Status Date / Time No Known Drug Allergies Allergy Verified 01/17/25 06:44 Review of Systems Constitutional Constitutional: Reports as per HPI OB Exam Narrative Exam Narrative: BSUS- confirmed mary breech presentation Objective Labs 01/17/25 06:20 Labs: Laboratory Results - last 24 hr 01/17/25 06:20 WBC 12.9 H RBC 4.52 Hgb 13.3 Hct 39.0 MCV 86.2 MCH 29.4 MCHC 34.1 RDW 12.8 Plt Count 449 H Blood Type A Positive Antibody Screen Negative Assessment and Plan Assessment and Plan Assessment and Plan narrative: Patient is a 39yo @ 36w6d presents for scheduled external cephalic version. 1. Malpresentation of fetus-- persistent mary breech presentation - fetus has been persistently mary breech since early - tried [employer] [employer] withou success - discussed risks/benefit of external cephalic version including risk of premature rupture of membranes, placental abruption, need for emergency , failure of procedure-- all questions answered and desires to proceed with version. - paitent requesting epidural for pain mangement- anesthesia will place combined spinal/epidural - terbutaline to relax the uterus - BSUS confirmed mary breech presentation, MVP- 5cm, posterior placenta-- good candidate for attempted versoin - will proceed once epidural placed Time-Based Coding :: [TOTAL MINUTES] spent with patient and on the chart (including review of chart, obtaining history, exam, reviewing outside data, placing orders, documenting exam and treatment plan, and counseling patient) on [DATE].
[2025-01-17] MEDS: TERBUTALINE 1 MG/ML VIAL 0.25 MG SUBCUT (08:17)
--- NOTE | 2025-01-17 08:49 | P.PCN_ITS ---
Procedures Date/Time Date of procedure: 01/17/25 Time of procedure: 08:30 General Procedure description: External cephalic version Surgeon: Zahraa Rasheed Senior Benefits Analyst(s): [none] PreOp Dx:?Breech presentation PostOp Dx:?Cephalic presentation, successful version Operation:?External Cephalic Version Findings:?Stable HR pre and post procedure Clinical Note:?Ms. Raya is a 39 year old who presented to L&D for a scheduled external cephalic version. Her past medical history is significant for a previous successful vaginal delivery with no complications. Her current has been uncomplicated, however, at recent clinical visit it was found that her current gestation is in a breech presentation. Today she is currently 36 weeks and 6 days gestational age. A reactive heart tracing was obtained prior to moving her to the ultrasound suite for the procedure. Risks of ECV, including abnormal fHR, PROM, abruption, injury to fetus, possible emergency C/S, and failed ECV were discussed with the patient and consent was obtained. Procedure Note:?A bedside ultrasound was performed which confirmed the single intrauterine and a complete mary breech presentation. There was noted to be adequate fluid MVP-5cm and a BPP was 8/8. The pelvis was located in the maternal LLQ, spine along the materal left side, and head in the materna RUQ. Pateint received an epidural for pain management and given terbutaline to relax the uterus. Using manual pressure, the fetus was manipulated with gentle pressure from the palms against the buttock and posterior occupit to stimulate a forward roll and attempted backwards roll. In total, four attempts where made. HRs were obtained between each attempt and were reassuring, between 125- 135 after each attempt. On the final attempt, the fetus shifted into a vertex lie. Following the procedure, she was noted to have a reassuring and reactive tracing for 1 hour post procedure. She did not have any regular contractions and there were no signs of PROM. She was discharged home with instructions on reasons to return to L&D and otherwise she will follow up in clinic in one week to confirm presentation. Complications: none PROFEE Insulator Tester Document charge(s): Yes
[2025-01-17 12:25] VITALS: BP 128/72
== END 2025-01-17 12:20 | disposition home or self-care (01) ==
PROVIDERS: Anesthesiology; Admitting Provider Obstetrics & Gynecology; PCP Student in an Organized Health Care Education/Training Program; Referring Provider Obstetrics & Gynecology; Visit Provider Obstetrics & Gynecology
DX: O32.1XX0 Maternal care for breech presentation, not applicable or unspecified (principal); Z3A.36 36 weeks gestation of pregnancy
CPT/HCPCS: 36415; 59025; 59050; 59412; 76815; 85027; 86850; 86900; 86901; 96360; 96372; G0378; G0379

== ENCOUNTER 2025-02-04 19:22 | Inpatient (IN) | payer OTHER, SELFPAY ==
[2025-02-04 20:20] VITALS: BP 117/70
[2025-02-04 20:34] LABS: Add Manual Diff / Slide Review NO; Hematocrit 41.3 % (36-46); Hemoglobin 14.1 g/dL (12.0-16.0); Lymphocytes Absolute Auto 2000 /uL (1100-4500); Mean Corpuscular HGB Conc 34.2 % (30-36); Mean Corpuscular Hemoglobin 29.6 PG (26-34); Mean Corpuscular Volume 86.6 fL (80-100); Platelet Count 381 X10^3/uL (150-400)
[2025-02-05] MEDS: LACTATED RINGERS 1,000 ML 100 ML IV ×2 (00:31→15:15)
--- NOTE | 2025-02-05 00:35 | PM.AN.REGBLK ---
[facility] <Dejuan Wing, DO - Last Filed: 02/05/25 16:25> Pre-procedure Procedure: Continuous Lumbar Epidural for L&D Attending OB provider: Zahraa Rasheed PM/ASHLEY narrative: at 40+. No medical or obstetric complications. Pt had epidural for previous delivery, as well as epidural for successful ECV at 36+ weeks. ASA Class: II Labs: Hct 41.3 % (36-46) 02/04/25 20:21 Plt Count 381 X10^3/uL (150-400) 02/04/25 20:21 Medications: Current Medications Generic Name Dose Route Start Last Admin Trade Name Freq PRN Reason Stop Dose Admin Carboprost Tromethamine 250 mcg 02/04/25 20:17 Carboprost 250 Mcg/Ml Ampul IM Q90M PRN Bleeding Oxytocin/Lactated Ringer's 30 unit in 500 mls @ 200 mls/hr 02/04/25 20:17 Oxytocin Premix IV CONT PRN Bleeding Protocol Tranexamic Acid 1,000 mg/ 100 mls @ 600 mls/hr 02/04/25 20:17 Sodium Chloride IV NOW PRN Bleeding Lactated Ringer's 1,000 mls @ 100 mls/hr 02/04/25 20:30 Lactated Ringers IV 02/05/25 06:29 CONT EVELYNE Oxytocin/Lactated Ringer's 30 unit in 500 mls @ 2 mls/hr 02/04/25 20:28 Oxytocin Premix IV TITRATE EVELYNE Protocol 2 MILLIUNIT/MIN Lidocaine HCl 20 ml 02/04/25 20:17 Lidocaine 1% 20 Ml INJ INTRA-OP PRN Post Delivery Methylergonovine Maleate 0.2 mg 02/04/25 20:17 Methylergonovine 0.2 Mg Tablet PO Q6HR PRN Heavy Bleeding Methylergonovine Maleate 0.2 mg 02/04/25 20:17 Methylergonovine 0.2 Mg/Ml Vial IM NOW PRN Bleeding Mineral Oil 30 ml 02/04/25 20:17 Mineral Oil 30 Ml Udc TOP PRN PRN Version Misoprostol 800 mcg 02/04/25 20:17 Misoprostol 200 Mcg Tablet OK NOW PRN Bleeding Misoprostol 400 mcg 02/04/25 20:17 Misoprostol 200 Mcg Tablet SL NOW PRN Bleeding Misoprostol 50 mcg 02/04/25 20:17 02/04/25 20:37 Misoprostol 25 Mcg Tablet SL 50 mcg Q4H PRN Administration cervical ripening Naloxone HCl 0.2 mg 02/04/25 20:17 Naloxone 0.4 Mg/Ml Vial IV Q2MIN PRN Opiate Reversal Ondansetron HCl 4 mg 02/04/25 20:17 Ondansetron 4 Mg/2 Ml Inj IV Q4HR PRN Nausea And Vomiting Oxytocin 10 unit 02/04/25 20:17 Oxytocin 10 Unit/Ml Vial IM NOW PRN Bleeding Allergies: Allergies Allergy/AdvReac Type Severity Reaction Status Date / Time No Known Drug Allergies Allergy Verified 02/04/25 19:38 Procedure Insertion date: 02/05/25 Insertion time: 00:51 Prep/Local: betadine x3 and 1% lidocaine Interspace: L34 Patient position: sitting Needle: 18 gauge Hustead (CSE: 27g Pencan through Hustead, clear CSF. 1mL 0.25% MPF bupiv) Loss of resistance with: saline ELIZABETH at (cm): 5 Catheter placed at SKIN (cm): 11 Catheter in SPACE (cm): 6 Insertion: No CSF, No Blood, No Paresthesia with insertion, No Paresthesia with injection and No Test dose reaction Initial Medications TEST DOSE time: 00:52 TEST DOSE: 1.5% lidocaine with epinephrine 1:200k (mL): 3 BOLUS DOSE time: 01:01 BOLUS DOSE (mL): 4 BOLUS DOSE med: other (infusate) Infusion INFUSION: 0.125% bupivacaine and with fentanyl 2 mcg/mL Initial rate (mL/hr): 8 Subsequent interventions: 0255: 5mL 0.25% bupiv, rate to 10 0315: 5mL 0.25% bupiv 0321: 5mL 2% chlorprocaine 0338: replaced epidural. L23. Chloroprep, seated, ELIZABETH saline at 5cm, CSE: 27g Pencan, clear CSF. 1mL 0.25% MPF bupiv. Catheter to 11cm (6cm in space). Test 03:45 negative, pump at 0352 at 10. Post-procedure Anesthesia date START: 02/05/25 Anesthesia time START: 00:38 Anesthesia date END: 02/05/25 Anesthesia time END: 12:18 Post-procedure Anesthesia Assessment: Yes CV function: HR/BP stable, Yes Resp function: RR/sat/airway adequate, Yes Post-op hydration adequate, Yes Pain control adequate, Yes Nausea & vomiting absent, Yes Temperature > 36 C, Yes Mental status appropriate and No Anesthesia complications <Liset Coto CRNA - Last Filed: 02/06/25 16:58> Infusion Subsequent interventions: 0255: 5mL 0.25% bupiv, rate to 10 0315: 5mL 0.25% bupiv 0321: 5mL 2% chlorprocaine 0338: replaced epidural. L23. Chloroprep, seated, ELIZABETH saline at 5cm, CSE: 27g Pencan, clear CSF. 1mL 0.25% MPF bupiv. Catheter to 11cm (6cm in space). Test 03:45 negative, pump at 0352 at 10. 1025 5cc 0.25% marcaine -JJ
[2025-02-05] MEDS: OXYTOCIN PREMIX 30 UNIT/500 ML PLAST..BAG IV (01:48)
[2025-02-05] MEDS: ONDANSETRON 4 MG/2 ML INJ IV ×2 (05:30→09:21)
[2025-02-05] MEDS: FENT 2MCG/ML BUPIV 0.125% EPI 200 MCG/100 ML PLAST..BAG 10 MCG EPIDURAL (06:29)
--- NOTE | 2025-02-05 06:44 | PM.OBHP.IH.1 ---
OB HPI Date/Time Date of admission: 02/05/25 Date Patient Seen: 02/04/25 Time Patient Seen: 18:00 History of Present Condition Chief complaint: INDUCTION PIETRO Calculator Estimated Delivery Date Method Current WG Current Estimate 02/08/25 LMP (Uncertain) 39w 4d Other Estimates 02/11/25 Ultrasound #1 39w 1d Estimated Gestational Age (weeks): 39w4d : 7 Para: 1 Narrative: Patient is a 39yo @ 39w4d presents to L&D for scheduled induction of labor on 02/04/25 for cervical ripening. reporting irregulr ctxs. good movement. care: good care Dating criteria OB: LMP confirmed by 1st trimester US Ultrasounds: normal mid trimester US Obstetrical complications: none Medical complications OB: none Preadmission Labs Last OB Lab Results: Blood Type A Positive 02/04/25, 20:21 Antibody Screen Negative 02/04/25, 20:21 Hct, (36-46) 41.3 % 02/04/25, 20:21 Hgb, (12.0-16.0) 14.1 g/dL 02/04/25, 20:21 Hep Bs Antigen, (NEGATIVE) Negative s/c 07/16/24, 14:35 Hepatitis C Antibody, (NEGATIVE) Negative s/c 07/16/24, 14:35 Rubella Antibody, (>15) 28.7 IU/mL 07/16/24, 14:35 VZV IgG Antibody, (Non Reactive) Reactive 07/16/24, 14:35 Glucose 1 Hr 50 gm, (76-139) 106 mg/dL 10/21/24, 10:39 Group B Strep (PCR) Neg for grp b strep 01/15/25, 14:00 Prior (ies) Past Pregnancies Del. Date GA/Weeks Labor Lgth Wt Sex Route Outcome Anesthesia Place Delv Breastfeed Preg Comp Name 12/09/15 6 spontaneous 04/03/21 5 spontaneous 02/11/22 39.6 16 7 lb 6.3 oz Male vacuum live - full term [facility] 10/26/23 5 spontaneous Delivery Date: 10/26/23 Last Updated by: Sofia Lentz RN Passed spontaneously Hx # Term Pregnancies: 1 Number of Living Children: 1 Evaluation Evaluation Baseline heart rate: 140 Variability: Moderate (6-25) monitor accelerations: Present Monitor Decelerations: Absent Contraction Frequency (minutes): 4 Uterine Contraction Intensity: Mild Category of Tracing: Reactive Status: Category l Dilation (cm): 1 Effacement (%): 30 Dilation: 1-2 cm Effacement: 0-30% station: -3 Position of cervix: mid Consistency: medium Landers score: 3 PFSH Medical History (Updated 11/27/24 @ 11:00 by Uyen Godfrey MD) Arm fracture Lymphoproliferative disease (~2015) Allergies (~2015) Surgical History (Updated 10/25/23 @ 09:38 by Sofia Lentz, RN) [place] teeth extracted S/P skin biopsy Family History (Updated 10/25/23 @ 09:40 by Sofia Lentz, MARITZA) Grandmother Lymphoma Grandmother Breast cancer Father Hypertension Social History (System 07/02/21 @ 09:39 by Zaira Carroll) marital status: number of children: 1 household members: spouse and children lives independently: Yes caregiver/support person: Yes housing: house pets and animals: Yes (Dog and cat - aware of toxoplasmosis) education level: master's degree occupational status: employed current occupational exposures/hazards: No special betsy needs: No travel history: recent seatbelt use: always water heater temp set < 120 deg: Yes working smoke detector in home: Yes fire extinguisher in home: Yes carbon monox detector in home: Yes firearms in home: No do you feel safe at home: Yes Smoking Status: Never smoker second hand exposure: No alcohol intake: former substance use type: does not use during the past year weight has: remained stable well-balanced diet: daily or most days daily servings fruits/ve or more times/day caffeine: Yes (aware of 200mg limit) Type(s) of exercise: walking, bicycling, resistance training and running frequency: daily Meds Home Medications and Allergies Home Medications ?Medication ?Instructions ?Recorded ?Confirmed ?Type prenat.vits,jane,zru-fijo-fgzde 1 tab PO DAILY 07/05/21 02/04/25 History cetirizine 10 mg capsule (Allergy 10 mg PO DAILY PRN allergy symptoms 10/25/23 02/04/25 History Relief (cetirizine)) citalopram 20 mg tablet 10 mg PO DAILY 10/02/24 02/04/25 History aspirin 81 mg capsule 81 mg PO DAILY 02/04/25 02/04/25 History Allergies Allergy/AdvReac Type Severity Reaction Status Date / Time No Known Drug Allergies Allergy Verified 02/04/25 19:38 OB Exam [facility] Head: normal to inspection Mouth: oral mucosae normal Eyes General: appearance normal, both eyes and all related structures Resp Effort & Inspection: normal respiratory effort Cardio Rate: regular rate Extremities Lower extremity: Yes normal to inspection Estimated Weight (lbs): 7 Objective Labs 02/04/25 20:21 Labs: Laboratory Results - last 24 hr 02/04/25 20:21 WBC 13.2 H RBC 4.76 Hgb 14.1 Hct 41.3 MCV 86.6 MCH 29.6 MCHC 34.2 RDW 13.0 Plt Count 381 Neut % (Auto) 74.2 Lymph % (Auto) 15.0 L [place] % (Auto) 9.4 Eos % (Auto) 0.8 L Baso % (Auto) 0.6 Neut # (Auto) 9800 H Lymph # (Auto) 2000 [place] # (Auto) 1200 H Eos # (Auto) 100 Baso # (Auto) 100 Blood Type A Positive Antibody Screen Negative Assessment and Plan Assessment and Plan Assessment and Plan narrative: Josué christine a 39yo @ 39w3d presents for scheduled elective induction of labor. 1. Elective induction of labor- admit to L&D - CEFM, IVF, regular diet - cervix unfavorable-- will start misoprostol 50mcg PO q 4 hours - EFW by melisa's- 7lbs - pain analgesia per request - GBS negative - ancitipate 2. General anxiety - continue citalopram 20mg daily while in hospital - monitor mood dispo- anticipate Time-Based Coding :: [TOTAL MINUTES] spent with patient and on the chart (including review of chart, obtaining history, exam, reviewing outside data, placing orders, documenting exam and treatment plan, and counseling patient) on [DATE].
[2025-02-05] MEDS: LACTATED RINGERS 1,000 ML 999 ML IV (07:53)
--- NOTE | 2025-02-05 13:04 | PM.OBPRVD ---
Labor & Delivery Delivery date: 02/05/25 Delivery Time: 12:08 Intrapartal Events: None Cervical ripening method: per misoprostal protocol Induction method: per pitocin protocol Delivery augmentation: rupture of membranes Delivery monitor: external FHT Route of delivery: (OP presentation) L&D Laceration Description: Labial (right labial laceration- approximated with 3-0 vicryl- interrupted stitches) Delivery repair: vicryl Estimated blood loss (mL): 200 Anesthesia Type: Epidural Complications: none Narrative: Josué is a 39yo G2 now P2002 presented to L&D for scheduled elective induction at 39wks. She received a single dose of misoprostol then started on pitocin up to 4mu/min. AROM performed in the am at 9.5cm. clear fluid. progressed to complete dilation and uncomplicated . delivered in OP position [place] Baby 1: Infant gender: Female Presentation: vertex Position: Occiput Posterior Placenta delivery description: Spontaneous Cord Vessel Description: 3 Vessels score (1 min): 7 score (5 min): 8 Plan for aftercare: Routine care
[2025-02-05] MEDS: METHYLERGONOVINE 0.2 MG/ML VIAL IM (15:13)
[2025-02-05] MEDS: OXYTOCIN PREMIX 30 UNIT/500 ML PLAST..BAG 200 UNIT IV (15:23)
[2025-02-05] MEDS: KETOROLAC 30 MG/ML VIAL IV (16:02)
[2025-02-05] MEDS: DERMOPLAST SPRAY 20% 60 ML 1 SPRAY TOP (16:07)
[2025-02-05] MEDS: ACETAMINOPHEN 325 MG TABLET 650 MG PO (17:37)
--- NOTE | 2025-02-05 21:25 | PM.EVENT ---
Event Note Date Patient Seen: 02/05/25 Time Patient Seen: 15:00 Event Note (Rapid Response, Code, or fall): Called to patient room ~ 2 hours after delivery. Patient had gotten up to use the bathroom and had a large clot come out and almost passed out. She was brought to the bed and BP was 80s/50s Her pitocin bolus was restarted and her Bleeding improved. I came to the bedside and noted she was continuing to bleeding minimally and notably her bladder felt distended. A straight cath was placed releasing 1000ml of urine. Once the bladder was emptied the uterus was noted to be firm with no further bleeding. Patient resting in bed comfortably after this. Patient attempted to urinate spontaneously but was unable to so the ballesteros was placed and will remain in place until tomorrow am and a void trial will be done. total EBL- 675ml CBC ordered for the am
[2025-02-05] MEDS: IBUPROFEN 600 MG TABLET PO (22:40)
[2025-02-06] MEDS: ACETAMINOPHEN 325 MG TABLET 650 MG PO ×4 (00:11→18:02)
[2025-02-06] MEDS: IBUPROFEN 600 MG TABLET PO ×3 (06:02→18:02)
[2025-02-06 06:11] LABS: Add Manual Diff / Slide Review NO; Hematocrit 31.0 % (36-46); Hemoglobin 10.6 g/dL (12.0-16.0); Lymphocytes Absolute Auto 2400 /uL (1100-4500); Mean Corpuscular HGB Conc 34.1 % (30-36); Mean Corpuscular Hemoglobin 29.7 PG (26-34); Mean Corpuscular Volume 87.1 fL (80-100); Platelet Count 281 X10^3/uL (150-400)
[2025-02-06] MEDS: CITALOPRAM 10 MG TABLET PO (08:37)
[2025-02-06] MEDS: DOCUSATE 100 MG CAPSULE PO (08:37)
[2025-02-06] MEDS: PRENATAL VIT,CALC/IRON/FOLIC 1 TABLET 1 TAB PO (08:37)
--- NOTE | 2025-02-06 16:51 | PM.OBDS.1 ---
Discharge Providers Provider Date of admission: 02/04/25 19:22 Discharge Date: 02/06/25 Primary care physician: Isatu Scales PA-C Consults: 02/04/25 20:17 Consult to Anesthesiology Urgent Comment: Consulting Provider: Anesthesiologist Reason for consultation: Epidural 02/05/25 13:02 Consult to Laboratory Coordinator Routine Comment: 02/05/25 15:07 Consult to Laboratory Coordinator Routine Comment: Discharge provider: Anselmo Page MD Summary Hospital Course Date Patient Seen: 02/06/25 Time Patient Seen: 16:51 Peripartum Data Delivery Method: Natural Vaginal Laceration Description: Labial Episiotomy description: None Procedures: Continuous lumbar epidural Spontaneous vaginal complications: uterine atony (Transient PPH successfully managed medically) Time Spent with Patient Time attestation: Total time spent providing and/or coordinating discharge services: Objective Labs 02/06/25 05:38 Labs: Laboratory Results - last 24 hr 02/06/25 05:38 WBC 21.7 H D RBC 3.56 L Hgb 10.6 L Hct 31.0 L MCV 87.1 MCH 29.7 MCHC 34.1 RDW 13.2 Plt Count 281 Neut % (Auto) 79.1 H Lymph % (Auto) 11.0 L [place] % (Auto) 9.4 Eos % (Auto) 0.3 L Baso % (Auto) 0.2 Neut # (Auto) 96272 H Lymph # (Auto) 2400 [place] # (Auto) 2000 H Eos # (Auto) 100 Baso # (Auto) 100 Discharge Plan Discharge Plan Patient Disposition: Home Provider Discharge Comment: Please review the written instructions you received when you were discharged from hospital. Your follow-up appointment as scheduled for 6 weeks after delivery we look forward to seeing then. If however in the meanwhile issues, concerns, questions please contact the office either phone at [phone], or via the patient portal. Discharge orders & Medications Prescriptions: Continued prenat.vits,jane,acc-utsg-hrrtg Tablet 1 tab PO DAILY Allergy Relief (cetirizine) 10 mg capsule 10 mg PO DAILY PRN (Reason: allergy symptoms) citalopram 20 mg tablet 10 mg PO DAILY Discontinued aspirin 81 mg capsule 81 mg PO DAILY Follow up/Referrals: Zahraa Rasheed DO [Physician, Gynecology] - 12/17/25 11:30 am Referral Note: Please check in at 11:15am for your six week appointment. Isatu Scales PA-C [Primary Care Provider, Medical] Discharge Health Status Multidrug resistant organism: No MDRO Diet/Activity/Treatments Diet: Diet as Tolerated Activity: As tolerated Other treatments: Muqq-cpf-kbssiit Tylenol and/or ibuprofen may be used as needed for additional pain relief. Mnfk-zrt-xkqpyen stool softeners and/or MiraLax may be used as needed for constipation Skin/Wound/Dressing Care Report to your healthcare provider any signs of infection, such as:: chills, fever, increased pain, unusual drainage and unusual redness Visit Report/Discharge Packet Instructions: DI for Labor and Delivery, Vaginal , DI for and Nipple Soreness Stand Alone Forms: Discharge: Care Discharge Data Primary Care Provider: Isatu Scales
[2025-02-06 16:52] VITALS: BP 114/66; PULSE 77; RESP 16; TEMP 36.8
== END 2025-02-06 18:10 | disposition home or self-care (01) | DRG 806 ==
PROVIDERS: Admitting Provider Obstetrics & Gynecology; PCP Student in an Organized Health Care Education/Training Program; Referring Provider Obstetrics & Gynecology; Visit Provider Obstetrics & Gynecology
DX: O99.344 Other mental disorders complicating childbirth (principal); O72.1 Other immediate postpartum hemorrhage; Z37.0 Single live birth; F41.9 Anxiety disorder, unspecified; Z3A.39 39 weeks gestation of pregnancy; O70.0 First degree perineal laceration during delivery; O99.893 Other specified diseases and conditions complicating puerperium; R33.8 Other retention of urine
CPT/HCPCS: 36415; 59050; 59200; 85025; 86850; 86900; 86901; G0379; J1885; J2210; J2405; J2590; J7120